=== PATIENT | female | born 1935 | race Caucasian/White ===

== ENCOUNTER 2019-04-24 15:13 | Inpatient (IN) | payer MEDICARE, BC ==
[~2019-04-24] VITALS: Ht 152.4 cm; Wt 91.2 kg
--- NOTE | 2019-04-24 15:13 | NUR ---
BIB RA 102 FROM HOME,C/O RIGHT SIDED CHEST PAIN X 2 WEEKS. TO ER BED 11, HOOKED TO GREY ROLL MAN, CHANGED TO GOWN, PROVIDED W WARM BLANKET, AWAITING MD LAMAS.
[2019-04-24] MEDS ORDERED: CLON0.1T PO (15:47)
[2019-04-24] MEDS ORDERED: KETOROLAC TROMETHAMINE INJ 60 MG/2 ML VIAL IM ONE (15:50)
--- NOTE | 2019-04-24 15:54 | NUR ---
DR FENG AT BEDSIDE
[2019-04-24] MEDS ORDERED: IV NS 0.9% 500 ML BAG IV ONE (16:00)
[2019-04-24] MEDS ORDERED: KETOROLAC TROMETHAMINE INJ 30 MG/ML VIAL IV ONE (16:00)
[2019-04-24 16:25] LABS: BASOPHILS # (AUTO) 0.1 /CMM (0.0-0.2); BASOPHILS % (AUTO) 0.8 % (0.0-2.0); EOSINOPHILS % (AUTO) 4.7 % (0.0-6.0); HEMATOCRIT 39 % (33-45); HEMOGLOBIN 12.7 g/dL (11.5-14.8); LYMPHOCYTES # (AUTO) 1.9 /CMM (0.8-4.8); LYMPHOCYTES % (AUTO) 28.6 % (20.0-44.0); MEAN CORPUSCULAR HGB CONC 33 g/dl (31.0-36.0); MEAN CORPUSCULAR VOLUME 83 fL (82-100); MONOCYTES # (AUTO) 0.8 /CMM (0.1-1.30); MONOCYTES % (AUTO) 11.1 % (2.0-12.0); NEUTROPHILS # (AUTO) 3.7 /CMM (1.8-8.9); NEUTROPHILS % (AUTO) 54.8 % (43.0-81.0); PLATELET COUNT (AUTO) 286 /CMM (150-450); RED BLOOD CELL COUNT(AUTO) 4.66 MIL/uL (4.0-5.2); WHITE BLOOD COUNT (AUTO) 6.8 K/uL (4.3-11.0)
[2019-04-24 16:41] LABS: ALANINE AMINOTRANSFERASE 17 U/L (12-78); ALKALINE PHOSPHATASE 123 U/L (46-116); ASPARTATE AMINOTRANSFERASE 15 U/L (15-37); BILIRUBIN,DIRECT 0.1 mg/dL (0.0-0.2); BILIRUBIN,TOTAL 0.7 mg/dL (0.2-1.0); CALCIUM, SERUM 8.8 mg/dL (8.5-10.1); CARBON DIOXIDE 26 mmol/L (21-32); CHLORIDE 107 mmol/L (98-107); CREATININE 0.7 mg/dL (0.6-1.3); GLUCOSE 96 mg/dL (74-106); LIPASE 100 U/L (73-393); POTASSIUM 3.9 mmol/L (3.5-5.1); SODIUM SERUM 141 mmol/L (136-145); TOTAL PROTEIN, SERUM 6.4 g/dL (6.4-8.2); UREA NITROGEN, BLOOD 13 mg/dL (7-18)
[2019-04-24] MEDS ORDERED: CEFTRIAXONE 1GM BAG (ER ONLY) 50 ML IV ONE ×2 (19:00→19:13)
--- NOTE | 2019-04-24 19:30 | NUR ---
REPORT GIVEN TO NOE SMITH FOR LUCILLE
--- NOTE | 2019-04-24 19:39 | NUR ---
URINE SAMPLE SENT O LAB
[2019-04-24 19:42] LABS: APPEARANCE,URINE Clear (CLEAR); BILIRUBIN,URINE Negative (NEGATIVE); BLOOD, URINE Negative Ery/uL (NEGATIVE); COLOR,URINE Yellow (YELLOW); KETONES,URINE Negative (NEGATIVE); LEUKOCYTE ESTERASE ,URINE Trace (NEGATIVE); NITRITE, URINE Negative (NEGATIVE); PH,URINE 5.5 (5.0-8.0); PROTEIN,URINE Negative (NEGATIVE); UGLUCOSE Negative (NEGATIVE); UROBILINOGEN,URINE 0.2 EU/dL (0.2)
[2019-04-24 19:49] LABS: BACTERIA,URINE None seen /HPF (None Seen); RBC,URINE 0-2 /HPF (0-2); SQUAMOUS EPITHELIAL CELL,UR Few /HPF (None Seen); WBC,URINE 0-2 /HPF (0-3)
[2019-04-24 19:55] VITALS: BP 138/64
--- NOTE | 2019-04-24 20:31 | NUR ---
MED-SER BED 204-1
--- NOTE | 2019-04-24 20:44 | NUR ---
REPORT GIVEN TO JAMILA SMITH.
--- NOTE | 2019-04-24 21:15 | NUR ---
Receive pt from E.R services via w/c at 2054. A/o x 4, respirations even and unlabored, no s/s of distress, Pt seems upset asked why and pt verbalized "I don't know! I just wanna go home i said to the E.R nurses to give me some pills and they don't wanna do it. they told me that i have to go in this floor first." explained and educated patient about the protocol of the hospital and i need to get some orders from the hospitalist. pt still insisting to go home. kept clean and dry and comfortable. head to toe assessment is done. Vs stable. will cont to monitor. Addendum: 04/24/19 at 5374 by JAMILA COLE RN Asked pt what pill she was asking so i could call the M.D right away to give it to her per pt she was asking for sleeping pill in the E.R. per pt wanted to do AMA.
--- NOTE | 2019-04-24 21:16 | NUR ---
Apryl and spoke to Rosy Wood COMMUNICATIONS CONTROLLER hospitalist informed pt wanted to go home AMA and upset because she didn't get her pill right away she was asking in the E.R.for sleeping pill. per Nina Gallegos ok for AMA.
--- NOTE | 2019-04-24 21:17 | NUR ---
Explained pt that i could give the sleeping pill and our hospitalist will now put the orders but the patient insisting to go home and wanted to sign AMA paper despite explaining risks and benefits. Educated pt but still wanted to go home.
--- NOTE | 2019-04-24 21:30 | NUR ---
DISCHARGE (AGAINST MEDICAL ADVICE) Pt signed AMA paper she is voluntarily leaving the hospital without being seen by the hospitalist. Pt is very upset. Pt verbalized "I am tired i really wanna go home ever since. I will sign AMA papers. 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 Pt denies fever, chills, chest pain, and pain. VS stable BP 156/78 R 19 P 78 T 97.7 02 sat at 100% room air. Heplock removed applied pressure kept dry and clean dressing. No s/s of bleeding. Paged and called PM RN Professor Of Literacy aware pt being AMA. Nina Gallegos, JACOB hospitalist made aware of pt signed AMA. All belongings was taken. SWEET PICKLE MAKER assisted pt to the lobby waited for the taxi and left.
== END 2019-04-24 21:30 | disposition left against medical advice (07) | DRG 195 ==
LOC: ER 15:20 → MEDSG2 20:46
PROVIDERS: ADMIT Nurse Practitioner Acute Care; ATTEND Nurse Practitioner Acute Care
DX: J18.9 Pneumonia, unspecified organism (principal); J45.909 Unspecified asthma, uncomplicated; R07.9 Chest pain, unspecified; I10 Essential (primary) hypertension
CPT/HCPCS: 36415; 71045-TC; 80048-TC; 80076-TC; 81000-TC; 83690-TC; 85025-TC; 87040-TC; 87081-TC; G0378; J0696; J1885

== ENCOUNTER 2019-04-25 17:03 | Emergency (ER) | payer MEDICARE, BC ==
[~2019-04-25] VITALS: Ht 152.4 cm; Wt 87.5 kg
[~2019-04-25 17:03] MED LIST: CLON0.1T PO
--- NOTE | 2019-04-25 17:15 | NUR ---
CAME IN FOR ABDOMINAL PAIN AND FREQUENT URINATION FOR 1 WEEK, WAS HERE IN [facility] YESTERDAY FOR SAME REASON. TO ER BED 9, HOOKED TO MONITOR, CHANGED TO GOWN, PROVIDED W WARM BLANKET, AWAITING MD LAMAS
--- NOTE | 2019-04-25 17:18 | NUR ---
DR CORTES AT BEDSIDE
[2019-04-25] MEDS ORDERED: IPRATROPIUM NEB FS 0.5 MG/2.5 ML AMPUL.NEB NEB ONE (17:30)
[2019-04-25] MEDS ORDERED: ALBUTEROL FS 2.5 MG/0.5 ML VIAL.NEB NEB ONE (17:30)
--- NOTE | 2019-04-25 17:32 | NUR ---
SUPERVISOR PLASMA AT BEDSIDE
[2019-04-25 17:34] LABS: BASOPHILS # (AUTO) 0.1 /CMM (0.0-0.2); BASOPHILS % (AUTO) 1.3 % (0.0-2.0); EOSINOPHILS % (AUTO) 3.5 % (0.0-6.0); HEMATOCRIT 40 % (33-45); HEMOGLOBIN 13.3 g/dL (11.5-14.8); LYMPHOCYTES # (AUTO) 2.4 /CMM (0.8-4.8); LYMPHOCYTES % (AUTO) 28.4 % (20.0-44.0); MEAN CORPUSCULAR HGB CONC 33 g/dl (31.0-36.0); MEAN CORPUSCULAR VOLUME 83 fL (82-100); MONOCYTES # (AUTO) 0.7 /CMM (0.1-1.30); MONOCYTES % (AUTO) 8.5 % (2.0-12.0); NEUTROPHILS % (AUTO) 58.3 % (43.0-81.0); PLATELET COUNT (AUTO) 309 /CMM (150-450); RED BLOOD CELL COUNT(AUTO) 4.85 MIL/uL (4.0-5.2); WHITE BLOOD COUNT (AUTO) 8.6 K/uL (4.3-11.0)
[2019-04-25] MEDS ORDERED: IPRATROPIUM NEB FS 0.5 MG/2.5 ML AMPUL.NEB ONE (17:41)
[2019-04-25] MEDS ORDERED: ALBUTEROL FS 2.5 MG/3 ML VIAL.NEB ONE (17:41)
[2019-04-25 17:55] LABS: ALANINE AMINOTRANSFERASE 17 U/L (12-78); ALBUMIN 3.3 g/dL (3.4-5.0); ALKALINE PHOSPHATASE 132 U/L (46-116); ASPARTATE AMINOTRANSFERASE 19 U/L (15-37); BILIRUBIN,DIRECT 0.1 mg/dL (0.0-0.2); BILIRUBIN,TOTAL 0.8 mg/dL (0.2-1.0); CALCIUM, SERUM 9.4 mg/dL (8.5-10.1); CARBON DIOXIDE 26 mmol/L (21-32); CHLORIDE 108 mmol/L (98-107); CREATININE 0.8 mg/dL (0.6-1.3); GLUCOSE 106 mg/dL (74-106); LIPASE 95 U/L (73-393); SODIUM SERUM 141 mmol/L (136-145); TOTAL PROTEIN, SERUM 6.8 g/dL (6.4-8.2); UREA NITROGEN, BLOOD 13 mg/dL (7-18)
--- NOTE | 2019-04-25 17:59 | NUR ---
ONGOING BREATHING TREATMENT
--- NOTE | 2019-04-25 18:54 | NUR ---
IV removed. Catheter intact and site benign. Pressure and 4x4 applied to site. No bleeding noted.Patient discharged to waiting room in stable condition. Written and verbal after care instructions given. Patient verbalizes understanding of instruction. Awaiting cab picking machine operator in waiting room.
[2019-04-25 18:56] VITALS: BP 116/76
== END 2019-04-25 18:57 | disposition home or self-care (01) ==
LOC: ER 17:08
DX: R10.31 Right lower quadrant pain (principal); R10.11 Right upper quadrant pain; I10 Essential (primary) hypertension; J45.909 Unspecified asthma, uncomplicated; Z60.2 Problems related to living alone
CPT/HCPCS: 36415; 71045-TC; 80048-TC; 80076-TC; 83690-TC; 84484-TC; 85025-TC

== ENCOUNTER 2019-05-07 16:37 | Emergency (ER) | payer MEDICARE, BC ==
[~2019-05-07] VITALS: Ht 152.4 cm; Wt 87.5 kg
--- NOTE | 2019-05-07 16:50 | NUR ---
[id number] FROM HOME FOR ABD PAIN SINCE THIS AM; SEEN HERE 10DAYS AGO TOLD TO COME BACK IF NO RELIEF. APTIENT A/OX4, BREATHING EVEN AND UNLABORED, ASSISTED TO BED, ATTACHED TO THE MONITOR, REFUSED TO CHANGE GOWN. PATIENT IN NAD, WAITING FOR MD LAMAS.
[2019-05-07] MEDS ORDERED: ONDANSETRON HCL/PF 4 MG/2 ML VIAL IVP ONE (17:00)
[2019-05-07] MEDS ORDERED: IV NS 0.9% 500 ML BAG IV ONE (17:00)
[2019-05-07] MEDS ORDERED: MORPHINE SULFATE INJ 2 MG/ML DISP.SYRIN IV ONE (17:00)
[2019-05-07] MEDS ORDERED: ONDANSETRON HCL/PF 4 MG/2 ML VIAL ONE (17:05)
[2019-05-07] MEDS ORDERED: MORPHINE SULFATE INJ 4 MG/ML DISP.SYRIN ONE (17:06)
[2019-05-07 17:16] LABS: BASOPHILS # (AUTO) 0.1 /CMM (0.0-0.2); BASOPHILS % (AUTO) 0.9 % (0.0-2.0); EOSINOPHILS % (AUTO) 3.8 % (0.0-6.0); HEMATOCRIT 42 % (33-45); HEMOGLOBIN 13.8 g/dL (11.5-14.8); LYMPHOCYTES # (AUTO) 2.5 /CMM (0.8-4.8); LYMPHOCYTES % (AUTO) 28.5 % (20.0-44.0); MEAN CORPUSCULAR HGB CONC 33 g/dl (31.0-36.0); MEAN CORPUSCULAR VOLUME 83 fL (82-100); MONOCYTES # (AUTO) 0.8 /CMM (0.1-1.30); MONOCYTES % (AUTO) 9.2 % (2.0-12.0); NEUTROPHILS % (AUTO) 57.6 % (43.0-81.0); PLATELET COUNT (AUTO) 342 /CMM (150-450); RED BLOOD CELL COUNT(AUTO) 5.04 MIL/uL (4.0-5.2); WHITE BLOOD COUNT (AUTO) 8.7 K/uL (4.3-11.0)
[2019-05-07 17:24] LABS: CALCIUM, SERUM 9.4 mg/dL (8.5-10.1); CARBON DIOXIDE 26 mmol/L (21-32); CHLORIDE 106 mmol/L (98-107); CREATININE 0.7 mg/dL (0.6-1.3); GLUCOSE 94 mg/dL (74-106); POTASSIUM 4.1 mmol/L (3.5-5.1); SODIUM SERUM 140 mmol/L (136-145); UREA NITROGEN, BLOOD 11 mg/dL (7-18)
[2019-05-07 17:38] LABS: ALANINE AMINOTRANSFERASE 20 U/L (12-78); ALBUMIN 3.5 g/dL (3.4-5.0); ALKALINE PHOSPHATASE 157 U/L (46-116); ASPARTATE AMINOTRANSFERASE 17 U/L (15-37); BILIRUBIN,DIRECT 0.2 mg/dL (0.0-0.2); LIPASE 130 U/L (73-393); TOTAL PROTEIN, SERUM 7.2 g/dL (6.4-8.2)
[2019-05-07 19:38] VITALS: BP 114/87
--- NOTE | 2019-05-07 19:38 | NUR ---
PIV REMOVED, RX PROVIDED, Patient discharged to home in stable condition. Written and verbal after care instructions given. Patient verbalizes understanding of instruction.
== END 2019-05-07 19:39 | disposition home or self-care (01) ==
LOC: ER 16:41
DX: R10.11 Right upper quadrant pain (principal); J45.909 Unspecified asthma, uncomplicated; I10 Essential (primary) hypertension; Z60.2 Problems related to living alone
CPT/HCPCS: 36415; 76705; 80048; 80076; 83690; 85025; 96374; 96375; 99284; J2270; J2405; J7040

== ENCOUNTER 2021-02-19 12:04 | Inpatient (IN) | payer MEDICARE, BC ==
[~2021-02-19] VITALS: Ht 152.4 cm; Wt 90.7 kg
--- NOTE | 2021-02-19 12:26 | NUR ---
, from home, c/o generalized weakness, tremors, currently on oral antibiotic for UTI. PT AAOX4, VSS. RR EVEN & UNLABORED. DENIES CP, SOB, DIZZINESS, N/V/D AT THIS TIME. PT SEEN & EVAL'D BY DR. STACK. WILL CONT TO MONITOR.
[2021-02-19] MEDS ORDERED: IV NS 0.9% 500 ML BAG IV ONE (12:30)
[2021-02-19 12:33] LABS: BASOPHILS % (AUTO) 0.2 % (0.0-2.0); HEMATOCRIT 41 % (33-45); HEMOGLOBIN 13.5 g/dL (11.5-14.8); LYMPHOCYTES # (AUTO) 0.8 /CMM (0.8-4.8); LYMPHOCYTES % (AUTO) 7.5 % (20.0-44.0); MEAN CORPUSCULAR HGB CONC 33 g/dl (31.0-36.0); MEAN CORPUSCULAR VOLUME 87 fL (82-100); MONOCYTES # (AUTO) 0.2 /CMM (0.1-1.30); MONOCYTES % (AUTO) 2.3 % (2.0-12.0); NEUTROPHILS # (AUTO) 9.5 /CMM (1.8-8.9); PLATELET COUNT (AUTO) 298 /CMM (150-450); RED BLOOD CELL COUNT(AUTO) 4.76 MIL/uL (4.0-5.2); WHITE BLOOD COUNT (AUTO) 10.6 K/uL (4.3-11.0)
[2021-02-19 12:36] LABS: CARBON DIOXIDE 26 mmol/L (21-32); CHLORIDE 108 mmol/L (98-107); GLUCOSE 117 mg/dL (74-106); POTASSIUM 4.1 mmol/L (3.5-5.1); SODIUM SERUM 142 mmol/L (136-145); UREA NITROGEN, BLOOD 18 mg/dL (7-18)
[2021-02-19 12:42] LABS: ALANINE AMINOTRANSFERASE 27 U/L (12-78); ALBUMIN 3.5 g/dL (3.4-5.0); ALKALINE PHOSPHATASE 104 U/L (46-116); ASPARTATE AMINOTRANSFERASE 14 U/L (15-37); BILIRUBIN,DIRECT 0.2 mg/dL (0.0-0.2); BILIRUBIN,TOTAL 1.2 mg/dL (0.2-1.0); TOTAL PROTEIN, SERUM 6.8 g/dL (6.4-8.2)
--- NOTE | 2021-02-19 12:49 | NUR ---
PT TO CT VIA [facility].
[2021-02-19] MEDS ORDERED: MAGNESIUM HYDROXIDE 30 ML UDC PO PRN (13:00)
[2021-02-19] MEDS ORDERED: Z GUARD REMEDY 2 OZ OINT TP PRN (13:00)
[2021-02-19] MEDS ORDERED: ACETAMINOPHEN 325 MG TABLET PO PRN (13:00)
[2021-02-19] MEDS ORDERED: MAG HYDROX/AL HYDROX/SIMETH 30 ML UDC PO PRN (13:00)
[2021-02-19] MEDS ORDERED: ONDANSETRON HCL/PF 4 MG/2 ML VIAL IVP PRN (13:00)
[2021-02-19 13:10] LABS: BILIRUBIN,URINE NEGATIVE (NEGATIVE); COLOR,URINE YELLOW (YELLOW); LEUKOCYTE ESTERASE ,URINE NEGATIVE (NEGATIVE); NITRITE, URINE NEGATIVE (NEGATIVE); PH,URINE 6.5 (5.0-8.0); PROTEIN,URINE NEGATIVE (NEGATIVE); UGLUCOSE NEGATIVE (NEGATIVE); UROBILINOGEN,URINE 0.2 EU/dL (0.2)
--- NOTE | 2021-02-19 13:16 | NUR ---
SUBMITTED MOVE SHEET
--- NOTE | 2021-02-19 13:16 | NUR ---
[facility] DIVER TENDER ALREADY INFORMED ABOUT PENDING ADMIT
[2021-02-19] MEDS ORDERED: PRED20TA PO (13:25)
[2021-02-19] MEDS ORDERED: OXYB10TA30 PO (13:25)
[2021-02-19] MEDS ORDERED: GABA-532 PO (13:25)
--- NOTE | 2021-02-19 13:33 | NUR ---
room 325-2
--- NOTE | 2021-02-19 13:39 | NUR ---
REPORT GIVEN TO SARAH DIAZ FOR LUCILLE.
[2021-02-19 14:25] VITALS: BP 142/86
--- NOTE | 2021-02-19 14:54 | NUR ---
MS RN OPENING NOTES RECEIVED PATIENT VIA GOURNEY TO ROOM 324, FROM THE EMERGENCY DEPARTMENT. PATIENT ARRIVED AT THE UNIT IN STABLE CONDITION ON ROOM AIR 99%. PATIENT IS BREATHING EVENLY AND UNLABORED. NO S/SX OF DISTRESS NOTED. PATIENT HAS RFA #20 GAUGE PATENT AND INTACT. PATIENT IS A/O X 4 ABLE TO MAKE NEEDS KNOWN. PATIENT' S SKIN IS INTACT NOTED WITH EDEMA ON MARISSA LOWER EXTREMITY AND RIGHT CALF BRUISE. ORIENTED PATIENT TO ROOM. SAFTEY MEASURES ARE IN PLACE BED IS LOW, LOCK AND CALL LIGHT WITHIN REACH. WILL CONTINUE TO MONITOR.
[2021-02-19] MEDS: CEFTRIAXONE 1 G in IV D5W 50 ML IV SCH (14:55)
[2021-02-19] MEDS: IV D5/0.45 NACL 1,000 ML IV PRN (14:56)
--- NOTE | 2021-02-19 15:00 | NUR ---
RN NOTES PHOTO OF SKIN ISSUE TAKEN AND PLACED IN CHART.
[2021-02-19] MEDS ORDERED: CLONIDINE HCL 0.1 MG TABLET PO PRN (18:30)
[2021-02-19] MEDS: ALPRAZOLAM 0.25 MG TABLET PO PRN (18:41)
--- NOTE | 2021-02-19 18:48 | NUR ---
MS RN CLOSING NOTES PATIENT IS AWAKE ALERT X 3. BREATHING EVEN AND UNLABORED ON ROOM AIR 99%. NO S/SX OF DISTRESS NOTED. PATIENT HAS RFA #20 GAUGE PATENT AND INTACT RUNNING FLUIDS @ 75 ML/HR.PATIENT' S SKIN IS INTACT NOTED WITH EDEMA ON BILATERAL LOWER EXTREMITY AND RIGHT CALF BRUISE. PATIENT REQUESTED ANXIETY AND PAIN MEDICATION EMPHATICALLY. MD ORDERED MEDICATION. MEDICATION ADMINISTERED TO PATIENT. SAFETY MEASURES ARE IN PLACE BED IS LOW, LOCK AND CALL LIGHT WITHIN REACH. WILL ENDORSE TO EVENING SHIFT.
[2021-02-19 20:00] VITALS: BP 128/74
--- NOTE | 2021-02-19 20:10 | NUR ---
PATIENT COMPLAINING OF NOT GETTING HOME MEDS. ALSO REPORTS HAVING ADVERSE RXN TO GABAPENTIN. CLARA JAMES CONTACTED NEW ORDER FOR ONE TIME DOSE OF PREDNISONE GIVEN. INFORMED OF GABAPENTIN ADVERSE RXN NEW ORDER TO DISCONTINUE GIVEN. ORDERS PLACED IN COMPUTER.
[2021-02-19] MEDS ORDERED: predniSONE 20 MG TABLET PO ONE (20:30)
[2021-02-20] MEDS: HYDROCODONE/APAP 5/325MG TABLET PO PRN ×4 (00:25→19:45)
[2021-02-20] MEDS: IV D5/0.45 NACL 1,000 ML IV PRN (05:07)
[2021-02-20 06:54] LABS: BASOPHILS % (AUTO) 0.3 % (0.0-2.0); HEMATOCRIT 41 % (33-45); HEMOGLOBIN 13.1 g/dL (11.5-14.8); LYMPHOCYTES # (AUTO) 0.9 /CMM (0.8-4.8); LYMPHOCYTES % (AUTO) 10.8 % (20.0-44.0); MEAN CORPUSCULAR HGB CONC 32 g/dl (31.0-36.0); MEAN CORPUSCULAR VOLUME 88 fL (82-100); MONOCYTES # (AUTO) 0.3 /CMM (0.1-1.30); NEUTROPHILS # (AUTO) 6.7 /CMM (1.8-8.9); NEUTROPHILS % (AUTO) 84.9 % (43.0-81.0); PLATELET COUNT (AUTO) 290 /CMM (150-450); RED BLOOD CELL COUNT(AUTO) 4.63 MIL/uL (4.0-5.2); WHITE BLOOD COUNT (AUTO) 7.9 K/uL (4.3-11.0)
[2021-02-20 07:46] LABS: ALBUMIN 2.9 g/dL (3.4-5.0); BILIRUBIN,TOTAL 1.1 mg/dL (0.2-1.0); CALCIUM, SERUM 8.3 mg/dL (8.5-10.1); CREATININE 0.9 mg/dL (0.6-1.3); MAGNESIUM 2.1 mg/dL (1.8-2.4); PHOSPHORUS 3.3 mg/dL (2.5-4.9); POTASSIUM 4.4 mmol/L (3.5-5.1); TOTAL PROTEIN, SERUM 6.1 g/dL (6.4-8.2)
[2021-02-20 08:05] LABS: THYROID STIMULATING HORMONE 1.092 uIU/mL (0.358-3.74)
[2021-02-20 08:07] VITALS: BP 152/79
--- NOTE | 2021-02-20 08:09 | NUR ---
RN OPENING NOTES Patient is alert and oriented. Patient is breathing even and unlabored. Per report patient is polyuric. Right forearm 20 gauze iv site intact. Bed is in lowest and locked position. Call light with in reach.
[2021-02-20] MEDS: OXYBUTYNIN CHLORIDE ER 5 MG TAB PO SCH (08:33)
[2021-02-20] MEDS: predniSONE 20 MG TABLET PO SCH (08:34)
[2021-02-20 09:00] LABS: BAND % (MANUAL) 1 % (0.0-5.0); LYMPHOCYTES % (MANUAL) 9 % (16-48); MONOCYTES % (MANUAL) 4 % (0-11.0); MYELOCYTES % 3 % (0-0); NEUTROPHILS % (MANUAL) 83 (42-76)
[2021-02-20] MEDS ORDERED: GABAPENTIN 300 MG CAPSULE PO SCH (09:00)
--- NOTE | 2021-02-20 10:09 | NUR ---
Patient seen by Dr Wilson and ordered to continue IV fluids
--- NOTE | 2021-02-20 10:10 | NUR ---
Report given to another nurse for the patient. Patient in stable condition and sittign upright in bed.
[2021-02-20] MEDS: CEFTRIAXONE 1 G in IV D5W 50 ML IV SCH (14:24)
[2021-02-20 16:00] VITALS: BP 134/72
--- NOTE | 2021-02-20 19:16 | NUR ---
MS/RN CLOSING NOTE PATIENT IS LAYING HOSPITAL BED, AWAKE. A/O X4 NO ACUTE DISTRESS NOTED. PATIENT ON ROOM AIR, TOLERATING WELL, NO SOB NOTED, BREATHING EVEN NON LABORED. SAFETY MEASURES IN PLACE, BED LOCKED AND IN LOWEST POSITION, CALL LIGHT WITHIN REACH. ALL NEED MET THROUGHOUT THE SHIFT. WILL ENDORSE TO HOME AIDE NURSE.
--- NOTE | 2021-02-20 19:50 | NUR ---
MS/RN OPENING NOTE RECEIVED PATIENT RESTING IN BED. AWAKE, ALERT AND ORIENTED X 4. ABLE TO MAKE NEEDS KNOWN. NO COMPLAINTS OF PAIN AT THIS TIME. IV ACCESS TO RIGHT FOREARM INTACT AND PATENT. CONTINUES ON IVF D5 1/2 NS @ 75ML/HR. COMPLAINTS OF GENERALIZED PAIN. GIVEN PRN NORCO WITH POSITIVE EFFECT. CALL LIGHT WITHIN REACH. ASPIRATION, FALL AND SAFETY PRECAUTIONS MAINTAINED. WILL CONTINUE TO MONITOR.
[2021-02-20 20:00] VITALS: BP 134/64
[2021-02-21] MEDS: HYDROCODONE/APAP 5/325MG TABLET PO PRN ×2 (01:39→20:32)
[2021-02-21] MEDS: ALPRAZOLAM 0.25 MG TABLET PO PRN ×2 (06:23→11:32)
--- NOTE | 2021-02-21 06:40 | NUR ---
MS/RN CLOSING NOTE PATIENT CURRENTLY SLEEPING IN BED. ALERT AND ORIENTED X 4. ABLE TO MAKE NEEDS KNOWN. NO COMPLAINTS OF PAIN AT THIS TIME. IV ACCESS TO RIGHT FOREARM INTACT AND PATENT. CONTINUES ON IVF D5 1/2 NS @ 75ML/HR. CONTINUES ON IV ABX. PATIENT REQUESTING TO SPEAK TO SPREAD CUTTER TODAY - WILL ENODRSE TO ONCOMING NURSE. CALL LIGHT WITHIN REACH. ASPIRATION, FALL AND SAFETY PRECAUTIONS MAINTAINED. WILL ENDORSE PLAN OF CARE TO ONCOMING SHIFT.
[2021-02-21 08:00] VITALS: BP 163/73
[2021-02-21] MEDS ORDERED: LIDOCAINE VISCOUS 2% UD 15 ML UDC MM PRN (08:00)
--- NOTE | 2021-02-21 08:00 | NUR ---
MS RN OPENING NOTE RECEIVED PATIENT SITTING UP IN BED, AWAKE. A/O X 4. NO COMPLAINTS OF PAIN AT THIS TIME. IV ACCESS ON R FOREARM #20 - INTACT, RUNNING D5 1/2 NS @ 75ML/HR. COMPLAINTS OF GENERALIZED PAIN. NOTED THAT PATIENT IS AMBULATORY. SAFETY PRECAUTIONS IN PLACE. CALL LIGHT WITHIN REACH. WILL CONTINUE TO MONITOR.
[2021-02-21] MEDS: predniSONE 20 MG TABLET PO SCH (08:17)
[2021-02-21] MEDS: OXYBUTYNIN CHLORIDE ER 5 MG TAB PO SCH (08:17)
[2021-02-21 09:28] LABS: CREATINE KINASE, TOTAL 64 U/L (26-192)
[2021-02-21 10:02] LABS: C-REACTIVE PROTEIN < 0.2 mg/dL (0.0-0.9)
[2021-02-21] MEDS: CEFTRIAXONE 1 G in IV D5W 50 ML IV SCH (13:56)
[2021-02-21 15:46] VITALS: BP 138/85
--- NOTE | 2021-02-21 18:30 | NUR ---
MS RN CLOSING NOTE PATIENT CURRENTLY LYING IN BED, AWAKE, WATCHING TV. A/O X 4. ABLE TO MAKE NEEDS KNOWN. NO COMPLAINTS OF PAIN AT THIS TIME. IV ACCESS TO RIGHT FOREARM INTACT AND PATENT. PENDING DISCHARGE PLAN - PATIENT WANTS TO GO HOME AND HIRE A AUTOMOBILE MECHANIC RADIATOR. CALL LIGHT WITHIN REACH. SAFETY PRECAUTIONS MAINTAINED. WILL ENDORSE TO PRODUCTION MACHINE OPERATOR NURSE FOR LUCILLE.
--- NOTE | 2021-02-21 19:35 | NUR ---
MS RN OPENING NOTE PATIENT IS CURRENTLY AWAKE. PT IS ALERT AND ORIENTED X3. PATIENT IS HARD OF HEARING. PT IS ABLE TO MAKE HER NEEDS KNOWN. PATIENT IS ON ROOM AIR AND IN NO RESPIRATORY DISTRESS. PT HAS AN IV ACCESS IN RIGHT FOREARM. SAFETY PRECAUTIONS IN PLACE: BED IS LOCKED AND CALL LIGHT IS WITHIN REACH. WILL CONTINUE TO MONITOR THE PATIENT.
[2021-02-21 20:00] VITALS: BP 133/73
--- NOTE | 2021-02-21 20:32 | NUR ---
RN MS NOTES PT HAD 9/10 PAIN IN BOTH KNEES. PT WAS GIVEN 1 TABLET OF NORCO 5-325 PO AT 2031. WILL CONTINUE TO MONITOR THE PT.
--- NOTE | 2021-02-21 21:26 | NUR ---
RN MS NOTES PATIENT'S IV ACCESS ON HER RIGHT FOREARM WAS LEAKING. RN DISCONTINUED THE IV ACCESS. PT REFUSED TO HAVE A NEW IV ACCESS APPLIED TO HER. CHARGE NURSE WAS MADE AWARE. PER PATIENT, SHE DOESN'T HAVE ANY SCHEDULED INTRAVENOUS MEDICATIONS, SO THERE IS NO NEED FOR A NEW IV ACCESS. WILL CONTINUE TO MONITOR THE PATIENT.
[2021-02-22] MEDS: HYDROCODONE/APAP 5/325MG TABLET PO PRN (02:19)
--- NOTE | 2021-02-22 02:19 | NUR ---
RN MS NOTES PT HAD 7/10 PAIN IN BOTH KNEES. PT WAS GIVEN 1 TABLET OF NORCO 5-325 PO AT 2031. WILL CONTINUE TO MONITOR THE PT.
[2021-02-22 06:45] LABS: BASOPHILS % (AUTO) 0.3 % (0.0-2.0); EOSINOPHILS % (AUTO) 0.6 % (0.0-6.0); HEMATOCRIT 41 % (33-45); HEMOGLOBIN 13.3 g/dL (11.5-14.8); LYMPHOCYTES # (AUTO) 2.9 /CMM (0.8-4.8); LYMPHOCYTES % (AUTO) 26.2 % (20.0-44.0); MEAN CORPUSCULAR HGB CONC 32 g/dl (31.0-36.0); MEAN CORPUSCULAR VOLUME 89 fL (82-100); MONOCYTES % (AUTO) 9.2 % (2.0-12.0); NEUTROPHILS # (AUTO) 7.2 /CMM (1.8-8.9); NEUTROPHILS % (AUTO) 63.7 % (43.0-81.0); PLATELET COUNT (AUTO) 285 /CMM (150-450); RED BLOOD CELL COUNT(AUTO) 4.64 MIL/uL (4.0-5.2); WHITE BLOOD COUNT (AUTO) 11.3 K/uL (4.3-11.0)
[2021-02-22 07:38] LABS: CALCIUM, SERUM 8.4 mg/dL (8.5-10.1); CREATININE 0.8 mg/dL (0.6-1.3)
--- NOTE | 2021-02-22 07:57 | NUR ---
MS RN CLOSING NOTES PATIENT IS CURRENTLY AWAKE. PT IS ALERT AND ORIENTED X3. PATIENT IS HARD OF HEARING. PT IS ABLE TO MAKE HER NEEDS KNOWN. PATIENT IS ON ROOM AIR AND IN NO RESPIRATORY DISTRESS. PT REFUSED TO HAVE AN IV ACCESS. SAFETY PRECAUTIONS IN PLACE: BED IS LOCKED AND CALL LIGHT IS WITHIN REACH. WILL CONTINUE TO MONITOR THE PATIENT.
[2021-02-22 08:00] VITALS: BP 148/96
[2021-02-22] MEDS: predniSONE 20 MG TABLET PO SCH (08:47)
[2021-02-22] MEDS: OXYBUTYNIN CHLORIDE ER 5 MG TAB PO SCH (08:47)
[2021-02-22 10:13] LABS: EOSINOPHILS % (MANUAL) 1 % (0-4); LYMPHOCYTES % (MANUAL) 24 % (16-48); MONOCYTES % (MANUAL) 9 % (0-11.0); NEUTROPHILS % (MANUAL) 66 (42-76)
[2021-02-22] MEDS: ALPRAZOLAM 0.25 MG TABLET PO PRN (12:48)
--- NOTE | 2021-02-22 14:40 | NUR ---
Furniture Mover Driver Consult: statement services representative consult requested to discuss plan of care. Per chart, patient was brought to the hospital on 02/19/2021 for general weakness. Patient is an 85-year-old, female. SW met with the patient in his hospital room on the [facility] surgical unit. Patient was alert and oriented x4. Patient presented calm and stated, I have trouble hearing. Patient is currently living at home alone at [address] [place] [address]. [address], [place] [address]; [phone]. Patient stated that she does not have any social support and is independent with her ADLs. Patient is ambulatory. SW asked the patient if she has a source of income and patient stated she receives income from Social Security and intermediate. Patient stated she has no history of mental illness or substance use. Patient denies any current suicidal or homicidal ideations. Discharge plans discussed with the patient, and patient stated she will return to her prior living arrangements. Patient stated, I spoke to case management to see if I could stay longer but my insurance has denied for me to extend my stay. Patient stated that she would like support at home and SW discussed some resources available to her in the senior resource guide. SW also stated that SW would follow-up with case management regarding home health services. SW offered senior resources to the patient which includes a booklet New Lifestyle Guide to [facility] and Care and a Senior Resource Guide. Patient accepted these resources and thanked this TRES. PLAN: Patient stated she will return to his prior living arrangements at the time of discharge. TRES spoke to case management manager Norma about the patients request for home health and case management manager stated she has faxed a request for the patient. No further SS interventions at this time, however SW will remain available as needed. SENIOR RESOURCE GUIDE RESOURCES INCLUDE: ADULT DAY HEALTH CARE CARE CENTERS: Private pay or Medi-cristina funded adult day care [facility] Adult Day Health Care [facility] , [facility] , [facility] Adult Care Center , [facility] Adult Day Health Care , [facility] Adult Day Health Care , [facility] Adult Daycare Center , Shelly [facility] Generation Center , Kwadwo Shalini [facility] Adult [place] , [place] HEARING DISORDER RESOURCES: [place] Telephone Access Program Deaf and Disabled Telecommunications Program www.ddtp.[facility].ca.gov HearRx Hearing Centers ([place]) Better Hearing Systems , [facility] ([facility] Agency on Deafness) V/ TTY; Bingo Clerk , [facility] Hearing Foundation -low income hearing aid assistance www.[facility] generalringfoundation.org [place] [facility] , Delgado HELP AT HOME CAREGIVER SUPPORT: In Home Support Services (Must have Medi-Cristina to be eligible) *Ask for a list of agencies that provide services to assist with care in the home. Local Senior Centers also have listings of care providers. HOME SAFETY MODIFICATIONS AND EQUIPMENT: Senior centers have additional referrals. [place] Housing and Community Investment Dept. Handyworker Program (low income) or Visit http://hcidla.lacity.org/ejo-ukffcw-zy for more information National Seating and Mobility and/or ; Forever Active www.foreveractivemed.Distil Interactive Stay Home Safe www.Stayhomesafe.com LIFE ALERT RESPONSE SYSTEM: PV [employer] Lifeline Services 556-347-4337 www. LifeChemclin.Distil Interactive Life Alert 926-800-5800 www.lifeOTOY.Distil Interactive Life Station 191-107-1225 www.UEISation.com Safe Return 880-406-4413 www.alz.or/safereturn Cell Phones for Seniors www.Keenjar MEALS AND FOOD PROGRAMS: [place] Meals on Wheels [phone] [place] Meals on Wheels [phone] [facility] [phone] [place] to the Homebound [phone] Avis to the Homebound [phone] [facility] to the Homebound [phone] [facility] to the Homebound [phone] [facility] Kwadwo Ling [phone] [facility] [phone] ONE Generation [phone] [facility] [phone] Meals on Wheels [phone] For all ages: $6.85/ meal w side. Delivered M-F from 10 am-1pm. Application and payment is done over the phone. Frozen meals available for weekends. Pollen - Social Platform Food Coalbanner [phone] [phone] Jainism Furniture Mover Driver [phone] [facility] [phone] [facility]- Brown bag lunches [phone] [facility] [phone] MEAL/GROCERY DELIVERY PROGRAMS: [facility] Gourmet Meals [phone]- [facility] [phone]- [facility] Magic Kitchen [phone] Moms Meals [phone] (ask Jean-Baptiste for Discount Select grocery stores may provide delivery. MEDICAL INSURANCE SUPPORT SERVICES: Center for Health Care Rights 782-529-3778 Health Insurance Counseling/Advocacy Programs (HICAP)-Must have Medicare. Offers counseling for Medi-Cristina eligibility 530-329-7356 Department of Public Furniture Mover Driver 787-425-2300 www.dhcs.ca.gov Medicare 980-343-4758 www.socialsecurity.org Social Security 048-891-8421 SENIOR ACTIVITY PROGRAMS: *Contact a local senior center, adult school, recreation facility or community college for education, fitness, recreation, and social programs. Aquatic Therapy and Adapted Exercise programs through [facility] 760-769-8508 Encore at [facility] 154-653-4013 www.[facility]/encore U- Senior Friends 051-421-0335 Ewa Gentry Senior Programs [phone] www.oasisnet.org Suddenly 65 www.rodcrmqo91.com SENIOR CENTERS: [facility] [phone] [facility] [phone] [facility] [phone] [facility] [phone] [facility] [phone] [facility] [phone] [facility] [phone] [facility] [phone] [facility] [phone] [facility] [phone] [facility] [phone] [facility] [phone] TRANSPORTATION: Local [facility] may have applications for transportation programs and additional resources. ACCESS Services [phone] Transportation for seniors and disabled persons 7 days a week requiring 254 hr. advance reservation. Must apply and register for program naty eligible. Echolocation 298-997-3010 or 452-888-6666 Transportation for seniors and persons with ADA card/metro disabled card in the [facility]. M-F only. Must register for services. ONE GENERATION [phone] Serves 65 years + in conjunction with Apervitae program. Must be registered with both programs. A to B Transport [phone] Provides wheelchair/gurney van service. Adult Medical Transport [phone] Accepts [facility] with prior authorization. Care Van [phone] Provides wheelchair Transport. City Wide Transportation [phone] Provides gurney service Gentle Care [phone] Gurney Transport. [facility] Town Transportation [phone] wheelchair & gurney transport [facility] Transportation [phone] wheelchair & gurney transport [place] Non-Emergency Transport [phone] wheelchair & gurney transport Independent Living [place] [phone] Short Term Transportation primarily for adults with disabilities on social security income. Nominal fee may apply and a reservation is required. [facility] [phone] or [phone] [facility] [phone] [place] [address] Referral Services -[phone] For additional programs & services
== END 2021-02-22 15:45 | disposition home health service (06) | DRG 690 ==
LOC: ER 12:07 → MED 13:41
PROVIDERS: ADMIT Internal Medicine; ATTEND Family Medicine
DX: N39.0 Urinary tract infection, site not specified (principal); J45.909 Unspecified asthma, uncomplicated; I10 Essential (primary) hypertension; Z20.822 Contact with and (suspected) exposure to COVID-19; F41.9 Anxiety disorder, unspecified; M06.9 Rheumatoid arthritis, unspecified; H91.90 Unspecified hearing loss, unspecified ear; R53.1 Weakness; E11.40 Type 2 diabetes mellitus with diabetic neuropathy, unspecified
CPT/HCPCS: 36415; 70450-TC; 71045-TC; 80048-TC; 80053-TC; 80061-TC; 80076-TC; 82550-TC; 83735-TC; 84100-TC; 84443-TC; 84484-TC; 85025-TC; 85652-TC; 85730-TC; 86140-TC; 87081-TC; 87086-TC; 93307-TC; 97112-TC; 97116-TC; 97530-TC; G0378; J0696; J3490; J7040; J7060

== ENCOUNTER 2024-05-04 09:52 | Emergency (ER) | payer MEDICARE, BC ==
[~2024-05-04] VITALS: Ht 157.5 cm; Wt 74.4 kg
[~2024-05-04 09:52] MED LIST changes: +GABA-532 PO; +OXYB10TA30 PO; +PRED20TA PO
[2024-05-04] MEDS ORDERED: ACETAMINOPHEN 325 MG TABLET ONE (11:11)
[2024-05-04] MEDS: ACETAMINOPHEN 325 MG TABLET PO ONE (11:12)
[2024-05-04 13:17] VITALS: BP 143/84; TEMP 98.7; O2SAT 100
== END 2024-05-04 13:18 | disposition home or self-care (01) ==
LOC: ER 10:04
DX: S70.02XA Contusion of left hip, initial encounter (principal); I10 Essential (primary) hypertension; J45.909 Unspecified asthma, uncomplicated; Z79.52 Long term (current) use of systemic steroids; Z79.899 Other long term (current) drug therapy; Z60.2 Problems related to living alone; Z88.1 Allergy status to other antibiotic agents; W18.39XA Other fall on same level, initial encounter; Y93.89 Activity, other specified; Y92.89 Other specified places as the place of occurrence of the external cause; Y99.8 Other external cause status
CPT/HCPCS: 73502

== ENCOUNTER 2024-05-19 09:05 | Inpatient (IN) | payer MEDICARE, BC ==
[~2024-05-19] VITALS: Ht 152.4 cm; Wt 45.4 kg
[2024-05-19] MEDS ORDERED: ACETAMINOPHEN 325 MG TABLET ONE (09:27)
[2024-05-19] MEDS: ACETAMINOPHEN 325 MG TABLET PO ONE (09:30)
[2024-05-19 09:39] LABS: BASOPHILS % (AUTO) 0.7 % (0.0-2.0); EOSINOPHILS # (AUTO) 0.2 K/uL (0.0-0.7); EOSINOPHILS % (AUTO) 3.5 % (0.0-6.0); HEMATOCRIT 40 % (33-45); HEMOGLOBIN 13.1 g/dL (11.5-14.8); LYMPHOCYTES # (AUTO) 1.5 K/uL (0.8-4.8); LYMPHOCYTES % (AUTO) 22.4 % (20.0-44.0); MEAN CORPUSCULAR HEMOGLOBIN 27 PG (26.0-33.0); MEAN CORPUSCULAR HGB CONC 33 g/dl (31.0-36.0); MEAN CORPUSCULAR VOLUME 84 fL (82-100); MONOCYTES # (AUTO) 0.6 K/uL (0.1-1.30); MONOCYTES % (AUTO) 8.6 % (2.0-12.0); NEUTROPHILS # (AUTO) 4.4 K/uL (1.8-8.9); NEUTROPHILS % (AUTO) 64.8 % (43.0-81.0); PLATELET COUNT (AUTO) 343 K/uL (150-450); RED BLOOD CELL COUNT(AUTO) 4.77 MIL/uL (4.0-5.2); RED CELL DISTRIBUTION WIDTH 16.2 % (11.5-15.0); WHITE BLOOD COUNT (AUTO) 6.7 K/uL (4.3-11.0)
[2024-05-19 09:44] LABS: CARBON DIOXIDE 24 mmol/L (21-32); CHLORIDE 106 mmol/L (98-107); CREATININE 0.9 mg/dL (0.6-1.3); GLUCOSE 102 mg/dL (74-106); POTASSIUM 3.8 mmol/L (3.5-5.1); SODIUM SERUM 136 mmol/L (136-145); UREA NITROGEN, BLOOD 18 mg/dL (7-18)
[2024-05-19 10:38] VITALS: O2SAT 99
[2024-05-19 11:30] VITALS: BP 142/96; TEMP 98.2; O2SAT 98
[2024-05-19] MEDS ORDERED: MAGNESIUM HYDROXIDE 30 ML UDC PO PRN (15:00)
[2024-05-19] MEDS ORDERED: ONDANSETRON HCL/PF 4 MG/2 ML VIAL IVP PRN (15:00)
[2024-05-19] MEDS ORDERED: Z GUARD REMEDY 4 OZ OINT TP PRN (15:00)
[2024-05-19] MEDS: ENOXAPARIN SODIUM 30 MG/0.3 ML DISP.SYRIN SQ SCH (15:00)
[2024-05-19 16:00] VITALS: BP 148/70; TEMP 97.8; O2SAT 99
[2024-05-19] MEDS: ACETAMINOPHEN 325 MG TABLET PO PRN (18:41)
[2024-05-19] MEDS: MAG HYDROX/AL HYDROX/SIMETH 30 ML UDC PO PRN (21:52)
[2024-05-20 06:42] LABS: BASOPHILS % (AUTO) 0.7 % (0.0-2.0); EOSINOPHILS # (AUTO) 0.3 K/uL (0.0-0.7); EOSINOPHILS % (AUTO) 5.9 % (0.0-6.0); HEMATOCRIT 41 % (33-45); HEMOGLOBIN 13.5 g/dL (11.5-14.8); LYMPHOCYTES # (AUTO) 1.4 K/uL (0.8-4.8); LYMPHOCYTES % (AUTO) 25.3 % (20.0-44.0); MEAN CORPUSCULAR HEMOGLOBIN 28 PG (26.0-33.0); MEAN CORPUSCULAR HGB CONC 33 g/dl (31.0-36.0); MEAN CORPUSCULAR VOLUME 85 fL (82-100); MONOCYTES # (AUTO) 0.5 K/uL (0.1-1.30); MONOCYTES % (AUTO) 9.9 % (2.0-12.0); NEUTROPHILS # (AUTO) 3.2 K/uL (1.8-8.9); NEUTROPHILS % (AUTO) 58.2 % (43.0-81.0); PLATELET COUNT (AUTO) 341 K/uL (150-450); RED BLOOD CELL COUNT(AUTO) 4.84 MIL/uL (4.0-5.2); WHITE BLOOD COUNT (AUTO) 5.4 K/uL (4.3-11.0)
[2024-05-20 07:04] LABS: CALCIUM, SERUM 9.3 mg/dL (8.5-10.1); CARBON DIOXIDE 24 mmol/L (21-32); CHLORIDE 108 mmol/L (98-107); CREATININE 0.7 mg/dL (0.6-1.3); GLUCOSE 97 mg/dL (74-106); MAGNESIUM 2.2 mg/dL (1.8-2.4); PHOSPHORUS 3.1 mg/dL (2.5-4.9); SODIUM SERUM 141 mmol/L (136-145); UREA NITROGEN, BLOOD 15 mg/dL (7-18)
[2024-05-20 08:00] VITALS: BP 148/85; TEMP 98.2; O2SAT 96
[2024-05-20 08:25] LABS: CHOLESTEROL 162 mg/dL (<200); HDL CHOLESTEROL 52 mg/dL (40-60); LDL 94 mg/dL (0-99); TRIGLYCERIDES 108 mg/dL (30-150)
[2024-05-20 16:00] VITALS: BP 116/78; TEMP 97.9; O2SAT 96
[2024-05-21] MEDS: ENSURE ENLIVE 237 ML LIQUID (VANILLA) PO SCH (08:39)
[2024-05-21] MEDS ORDERED: IBUP200C5 PO (14:10)
== END 2024-05-21 16:50 | disposition home health service (06) | DRG 556 ==
LOC: ER 09:09 → MED 10:28
PROVIDERS: ADMIT Nurse Practitioner Acute Care; ATTEND Nurse Practitioner Acute Care
DX: M25.551 Pain in right hip (principal); R29.6 Repeated falls; J45.909 Unspecified asthma, uncomplicated; I10 Essential (primary) hypertension; Z90.710 Acquired absence of both cervix and uterus; H90.5 Unspecified sensorineural hearing loss; H26.9 Unspecified cataract; M25.562 Pain in left knee; M25.561 Pain in right knee; Z96.653 Presence of artificial knee joint, bilateral
CPT/HCPCS: 36415; 73552; 73590-TC; 80048-TC; 80061-TC; 83735-TC; 84100-TC; 85025-TC; 97110-TC; 97116-TC; 97530-TC; G0378; J1650

== ENCOUNTER 2024-12-11 12:16 | Emergency (ER) | payer MEDICARE, BC ==
[~2024-12-11] VITALS: Ht 154.9 cm; Wt 61.2 kg
[~2024-12-11 12:16] MED LIST changes: -CLON0.1T PO; -GABA-532 PO; +IBUP200C5 PO; -OXYB10TA30 PO; -PRED20TA PO
[2024-12-11 12:23] VITALS: BP 124/76; TEMP 98.2
[2024-12-11 13:14] VITALS: O2SAT 98
== END 2024-12-11 13:15 | disposition home or self-care (01) ==
LOC: ER 12:56
DX: R22.0 Localized swelling, mass and lump, head (principal); F03.90 Unspecified dementia, unspecified severity, without behavioral disturbance, psychotic disturbance, mood disturbance, and anxiety; I10 Essential (primary) hypertension; J45.909 Unspecified asthma, uncomplicated; Z88.8 Allergy status to other drugs, medicaments and biological substances; Z60.2 Problems related to living alone

== ENCOUNTER 2025-10-02 10:32 | Emergency (ER) | payer MEDICARE, BC ==
[~2025-10-02] VITALS: Ht 162.6 cm; Wt 85.7 kg
[2025-10-02 11:00] LABS: PLATELET COUNT (AUTO) 320 K/uL (150-450); RED BLOOD CELL COUNT(AUTO) 4.43 MIL/uL (4.0-5.2); RED CELL DISTRIBUTION WIDTH 16.1 % (11.5-15.0); WHITE BLOOD COUNT (AUTO) 7.4 K/uL (4.3-11.0)
[2025-10-02 11:21] LABS: CALCIUM, SERUM 9.3 mg/dL (8.5-10.1); CREATININE 0.8 mg/dL (0.6-1.3); SODIUM SERUM 138.0 mmol/L (136-145); UREA NITROGEN, BLOOD 15.0 mg/dL (7-18)
[2025-10-02] MEDS ORDERED: IV NS 0.9% 250 ML IV ONE (11:24)
[2025-10-02] MEDS ORDERED: IOHEXOL-300 100 ML VIAL IV ONE (11:24)
[2025-10-02 11:27] LABS: ASPARTATE AMINOTRANSFERASE 16.0 U/L (15-37); TOTAL PROTEIN, SERUM 7.0 g/dL (6.4-8.2)
[2025-10-02] MEDS: ACETAMINOPHEN ES 500 MG TABLET PO ONE (13:10)
[2025-10-02 13:19] LABS: APPEARANCE,URINE CLEAR (CLEAR); BLOOD, URINE NEGATIVE Ery/uL (NEGATIVE); LEUKOCYTE ESTERASE ,URINE NEGATIVE (NEGATIVE); NITRITE, URINE NEGATIVE (NEGATIVE); UGLUCOSE NEGATIVE (NEGATIVE)
[2025-10-02] MEDS ORDERED: POLY119P PO (13:30)
[2025-10-02] MEDS ORDERED: ACET-2030 PO (13:30)
[2025-10-02 16:18] VITALS: BP 124/84; TEMP 98.7; O2SAT 95
== END 2025-10-02 16:18 | disposition home or self-care (01) ==
LOC: ER 10:46
DX: R10.31 Right lower quadrant pain (principal); F03.90 Unspecified dementia, unspecified severity, without behavioral disturbance, psychotic disturbance, mood disturbance, and anxiety; I11.9 Hypertensive heart disease without heart failure; J45.909 Unspecified asthma, uncomplicated; Z88.8 Allergy status to other drugs, medicaments and biological substances
CPT/HCPCS: 99285; 74177; 85025; 83690; 81003; 36415; 80053; J7050; Q9967